=== PATIENT | male | born 1960 | race Caucasian/White ===

== ENCOUNTER 2018-07-20 13:03 | Emergency (ER) | payer OTHER, SELFPAY ==
[2018-07-20] VITALS (11 sets, daily range): BP systolic 118–132; BP diastolic 51–78; PULSE 36–104; RESP 13–20; TEMP 36.2–37.2; O2SAT 96–100
--- NOTE | 2018-07-20 13:42 | ED.SYNCOPE ---
HPI - Syncope General Chief Complaint: Syncope Stated Complaint: NODDING OFF, WAS UNRESPONSIVE FOR A FEW MIN Time Seen by Provider: 07/20/18 13:26 Source: patient Mode of arrival: wheelchair Limitations: no limitations History of Present Illness HPI narrative: Patient is a 58-year-old male who presents with syncopal episodes. He has had 3 syncopal episodes in the last 30 min. They are brief lasting 1-2 minutes. He is in his wheelchair when he nods off. They have been witnessed episodes. 1 was actually in the waiting room. The has been admitted to [facility] multiple times in the past year. He was actually released 06/03/2018 for E coli septicemia and he now resides at [facility]. He does not feel episodes coming on he denies any chest pain heart palpitations or shortness of breath. Related Data Allergies Allergy/AdvReac Type Severity Reaction Status Date / Time furosemide [From Lasix] Allergy Verified 07/20/18 15:10 Review of Systems Review of Systems All systems reviewed & are unremarkable except as noted in HPI and below Constitutional Reports as per HPI, Reports system reviewed and no additional complaints, except as docu, Denies increased appetite and Denies malaise Eyes Denies blurry vision and Denies diplopia ENT Ears, Nose, Mouth, and Throat: Denies change in voice, Denies neck pain and Denies sore throat Cardiovascular Denies chest pain, Reports syncope, Denies irregular heart rhythm, Denies lightheadedness, Denies palpitations, Denies dyspnea, Denies dyspnea on exertion and Denies orthopnea Respiratory Denies cough, Denies dyspnea, Denies dyspnea on exertion and Denies wheezing Gastrointestinal Gastrointestinal: Denies abdominal pain, Denies change in bowel habits, Denies diarrhea, Denies nausea and Denies vomiting Musculoskeletal Denies back pain and Denies neck pain Neurologic Reports syncope Endocrine Denies palpitations Allergic/Immunologic Denies wheezing PFSH Medical History Alcoholism (Acute) Chronic kidney disease (Acute) Diabetes (Acute) Hypertension (Acute) Social History Smoking Status: Never smoker Exam Initial Vital Signs Initial Vital Signs: Vital Signs Temperature 97.7 F 07/20/18 13:30 Pulse Rate 96 H 07/20/18 13:30 Respiratory Rate 20 07/20/18 13:30 Blood Pressure 120/59 L 07/20/18 13:30 Pulse Oximetry 100 07/20/18 13:30 Const General: cooperative, comfortable and well groomed Nutritional Appearance: overweight Orientation: alert, awake and oriented x3 HENMT Head: normal to inspection and normocephalic Eyes General: appearance normal, both eyes and all related structures Neck Neck: normal visual inspection, full ROM and no meningeal signs Chest Chest: normal inspection of the chest Resp Effort & Inspection: normal respiratory effort Auscultation: clear to auscultation bilaterally, no crackles, no egophony, no rales and no rhonchi Cardio Rate: regular rate Rhythm: regular rhythm Heart Sounds: S1 normal and S2 normal GI Palpation: soft Percussion: normal to percussion Back/Spine/Pelvis Back: normal to inspection Skin General: no rashes or lesions noted Neuro General: alert, awake and oriented x3 Cranial Nerves: CN's II-XI intact bilaterally Extrem Other: Right AKA Left toes amputated Course Orders Ordered: ED Orders 07/20/18 13:43 XR chest 1V Stat 07/20/18 13:50 Complete Blood Count AUTO DIFF Stat Comprehensive Metabolic Panel Stat Prothrombin Time INR Stat Troponin & CK Cardiac Panel Stat 07/20/18 13:56 CT head/brain wo con Stat Sodium Chloride (Normal Saline 0.9%) 1,000 mls @ 150 mls/hr IV BOLUS ONE Stop: 07/20/18 20:21 Last Infusion: 07/20/18 15:48 Dose: 500 mls/hr Admin: 07/20/18 15:29 Dose: 150 mls/hr Vital Signs - 8 hr 07/20/18 13:30 07/20/18 14:05 07/20/18 14:30 Temperature 97.7 F Pulse Rate 96 H 99 H 36 L Respiratory Rate 20 16 Blood Pressure 120/59 L Blood Pressure [Right Arm] 118/78 Pulse Oximetry 100 100 07/20/18 14:52 07/20/18 15:02 07/20/18 15:03 Temperature 98.9 F Pulse Rate 104 H 100 H Respiratory Rate Blood Pressure Blood Pressure [Right Arm] 126/51 H 127/54 H Pulse Oximetry 07/20/18 15:05 07/20/18 15:35 07/20/18 16:07 Temperature 97.3 F L 97.2 F L Pulse Rate 102 H 97 H 96 H Respiratory Rate 16 20 Blood Pressure 130/72 H Blood Pressure [Right Arm] 132/57 H 132/70 H Pulse Oximetry 97 97 07/20/18 16:33 07/20/18 17:28 Temperature Pulse Rate 96 H 93 H Respiratory Rate 13 Blood Pressure Blood Pressure [Right Arm] 121/60 H 121/63 H Pulse Oximetry 96 MDM - Syncope Lab Data Attestation: I reviewed the patient's lab results. Result diagrams: 07/20/18 13:50 07/20/18 13:50 Lab Results 07/20/18 07/20/18 07/20/18 Range/Units 13:50 13:50 13:50 WBC 6.9 (4.5-11.0) X10^3/uL RBC 2.85 L (4.5-5.9) X10^6/uL Hgb 9.7 L (13.5-17.5) g/dL Hct 27.3 L (41-53) % MCV 95.8 (80-100) fL MCH 34.1 H (26-34) PG MCHC 35.6 (30-36) % RDW 18.5 H (11.6-14.8) % Plt Count 135 L (150-400) X10^3/uL Neut % (Auto) 77.2 H (50-75) % Lymph % (Auto) 13.6 L (25-40) % [place] % (Auto) 5.4 (3-14) % Eos % (Auto) 3.2 (2-4) % Baso % (Auto) 0.6 (0-2) % Neut # (Auto) 5400 (2706-9322) /uL PT 11.9 (10.1-12.7) SECONDS INR 1.1 (0.9-1.3) Sodium 141 (137-145) mmol/L Potassium 4.3 (3.4-5.1) mmol/L Chloride 105 (98-107) mmol/L Carbon Dioxide 27 (22-32) mmol/L BUN 27 H (9-20) mg/dL Creatinine 1.30 H (0.66-1.25) mg/dL Estimated GFR 56.3 L (>60) mL/min BUN/Creatinine Ratio 20.8 (6-22) Glucose 220 H (80-110) mg/dL Calcium 9.1 (8.4-10.2) mg/dL Total Bilirubin 0.9 (0.2-1.3) mg/dL AST 30 (17-59) IU/L ALT 33 (21-72) IU/L Alkaline Phosphatase 207 H (38-126) U/L Total Creatine Kinase 39 L (55-170) U/L Troponin I < 0.012 (0.01-0.034) ng/mL Total Protein 6.8 (6.3-8.2) g/dL Albumin 3.8 (3.5-5.0) g/dL Globulin 3.0 (1.7-4.1) g/dL Albumin/Globulin Ratio 1.3 (1.0-2.8) ECG Data Attestation: I personally reviewed and interpreted this ECG as follows: MDM Narrative Medical decision making narrative: Patient has had 2 syncopal episodes while in the emergency department. His heart rate appears to an SVT rate 145-150. He then has conversion pauses lasting 3-4 seconds. He passes out during both of these times but is not consistent. His heart rate is very erratically. I have spoken with , cardiology at [facility] regards to syncope. Her she agrees with transferring but recommends hospitalist admission. I spoke with Dr. Freedman, hospitalist who happily accepts patient for transfer. Discharge Plan Departure Patient Disposition: [facility] Clinical Impression: Cardiac syncope Interventions: ED Discharge Assessment Last Done: 07/20/18 16:07
--- NOTE | 2018-07-20 13:43 | DI.RAD.S_ITS ---
PROCEDURE: XR CHEST 1V INDICATIONS: syncope TECHNIQUE: One view of the chest was acquired. COMPARISON: None. FINDINGS: Surgical changes and devices: Sternotomy wires, possible prior CABG. Lungs and pleura: No pleural effusions or pneumothorax. Lungs are mildly edematous. Mediastinum: Mediastinal contours appear normal. Heart size is mildly enlarged. Bones and chest wall: No suspicious bony lesions. Overlying soft tissues appear unremarkable. IMPRESSION: Mild chronic CHF versus mild acute CHF. Prior CABG. Dictated by: Leonardo Ruffin M.D. on 07/20/2018 at 14:05 Approved by: Leonardo Ruffin M.D. on 07/20/2018 at 14:06
--- NOTE | 2018-07-20 13:56 | DI.CT.S_ITS ---
PROCEDURE: CT HEAD/BRAIN WO CON INDICATIONS: syncope TECHNIQUE: Noncontrast 4.5 mm thick angled axial sections acquired from the foramen magnum to the vertex, with coronal and sagittal reformats. For radiation dose reduction, the following was used: automated exposure control, adjustment of mA and/or kV according to patient size. COMPARISON: None. FINDINGS: Image quality: Excellent. CSF spaces: Basal cisterns are patent. No extra-axial fluid collections. Ventricles are normal in size and shape. Brain: No midline shift. No intracranial masses or hemorrhage. Chisholm-white matter interface is normal. Skull and face: Calvarium and visualized facial bones are intact, without suspicious lesions. Sinuses: Visualized sinuses and mastoids are clear. IMPRESSION: Positive syncopal episode is not found, no trauma after syncope is seen. Dictated by: Leonardo Ruffin M.D. on 07/20/2018 at 14:06 Approved by: Leonardo Ruffin M.D. on 07/20/2018 at 14:06
[2018-07-20 14:00] LABS: Add Manual Diff / Slide Review NO; Basophils Percent Auto 0.6 % (0-2); Eosinophils Percent Auto 3.2 % (2-4); Hematocrit 27.3 % (41-53); Hemoglobin 9.7 g/dL (13.5-17.5); Lymphocytes Percent Auto 13.6 % (25-40); Mean Corpuscular HGB Conc 35.6 % (30-36); Mean Corpuscular Hemoglobin 34.1 PG (26-34); Mean Corpuscular Volume 95.8 fL (80-100); Monocytes Percent Auto 5.4 % (3-14); Neutrophils Absolute Auto 5400 /uL (3000-5900); Neutrophils Percent Auto 77.2 % (50-75); Platelet Count 135 X10^3/uL (150-400); Red Blood Cell Count 2.85 X10^6/uL (4.5-5.9); Red Cell Distribution Width 18.5 % (11.6-14.8); White Blood Cell Count 6.9 X10^3/uL (4.5-11.0)
--- NOTE | 2018-07-20 14:06 | PC.NURSE ---
pt transferred into room 5, with friend, apparerently multiple syncopal episodes. while speaking with md, his rhythm went into svt, and pt did feel faint. hr 144. incidence has happened x 3 since admit to ed.
[2018-07-20 14:09] LABS: INR 1.1 (0.9-1.3); Prothrombin Time 11.9 SECONDS (10.1-12.7)
[2018-07-20 14:12] LABS: Alanine Aminotransferase 33 IU/L (21-72); Albumin 3.8 g/dL (3.5-5.0); Albumin Globulin Ratio 1.3 (1.0-2.8); Alkaline Phosphatase 207 U/L (38-126); Aspartate Aminotransferase 30 IU/L (17-59); BUN Creatinine Ratio 20.8 (6-22); Bilirubin Total 0.9 mg/dL (0.2-1.3); Blood Urea Nitrogen 27 mg/dL (9-20); Calcium 9.1 mg/dL (8.4-10.2); Carbon Dioxide 27 mmol/L (22-32); Chloride 105 mmol/L (98-107); Creatine Kinase 39 U/L (55-170); Estimated Glomerular Filt Rate 56.3 mL/min (>60); Glucose 220 mg/dL (80-110); HEMOLYSIS < 15 (0-50); Potassium 4.3 mmol/L (3.4-5.1); Sodium 141 mmol/L (137-145); Total Protein 6.8 g/dL (6.3-8.2)
[2018-07-20 14:29] LABS: Troponin I < 0.012 ng/mL (0.01-0.034)
--- NOTE | 2018-07-20 14:45 | CM.SWNOTE ---
LEATHER GRAINER/Note: Received call from ED staff requesting assistance for patient in room#5. Staff report that patient requesting information for Medical DPOA. LEATHER GRAINER met with patient explained role. Patient is a 58yr old male whom recently moved to [facility] approximately 2wks ago. Patient alert and oriented at time of visit. Patient reports that he was with his friend in local restaurant preparing DPOA paperwork when he had dizzy/fainting episode and came to the Emergency Department. Patient has paperwork with him but it is not completed. LEATHER GRAINER provided patient with DPOA brochure and patient reports that he would prefer to use the paperwork given to him by [facility]. Patient reports that he has no family in the area and that he would like to assign his friend/Musa as his DPOA. Musa arrived during interview and reports that he is in agreement. Paperwork completed and RN/Kassie agreed to call medical records for notary. During this time it was determined that patient will need to be transferred for cardiology services. Patient's preference is to go to [facility] in [place]. ED staff aware of patient's preference. P: Transfer to higher level of care for cardiac services. JORDEN Nolasco
--- NOTE | 2018-07-20 14:51 | ED_ITS ---
HPI - Syncope General Chief Complaint: Syncope Stated Complaint: NODDING OFF, WAS UNRESPONSIVE FOR A FEW MIN Time Seen by Provider: 07/20/18 13:26 Source: patient Mode of arrival: wheelchair Limitations: no limitations History of Present Illness HPI narrative: Patient is a 58-year-old male who presents with syncopal episodes. He has had 3 syncopal episodes in the last 30 min. They are brief lasting 1-2 minutes. He is in his wheelchair when he nods off. They have been witnessed episodes. 1 was actually in the waiting room. The has been admitted to [facility] multiple times in the past year. He was actually released 2017 for E coli septicemia and he now resides at [facility]. He does not feel episodes coming on he denies any chest pain heart palpitations or shortness of breath. Related Data Allergies Allergy/AdvReac Type Severity Reaction Status Date / Time furosemide [From Lasix] Allergy Verified 07/20/18 15:10 Review of Systems Review of Systems All systems reviewed & are unremarkable except as noted in HPI and below Constitutional Reports as per HPI, Reports system reviewed and no additional complaints, except as docu, Denies increased appetite and Denies malaise Eyes Denies blurry vision and Denies diplopia ENT Ears, Nose, Mouth, and Throat: Denies change in voice, Denies neck pain and Denies sore throat Cardiovascular Denies chest pain, Reports syncope, Denies irregular heart rhythm, Denies lightheadedness, Denies palpitations, Denies dyspnea, Denies dyspnea on exertion and Denies orthopnea Respiratory Denies cough, Denies dyspnea, Denies dyspnea on exertion and Denies wheezing Gastrointestinal Gastrointestinal: Denies abdominal pain, Denies change in bowel habits, Denies diarrhea, Denies nausea and Denies vomiting Musculoskeletal Denies back pain and Denies neck pain Neurologic Reports syncope Endocrine Denies palpitations Allergic/Immunologic Denies wheezing PFSH Medical History Alcoholism (Acute) Chronic kidney disease (Acute) Diabetes (Acute) Hypertension (Acute) Social History Smoking Status: Never smoker Exam Initial Vital Signs Initial Vital Signs: Vital Signs Temperature 97.7 F 07/20/18 13:30 Pulse Rate 96 H 07/20/18 13:30 Respiratory Rate 20 07/20/18 13:30 Blood Pressure 120/59 L 07/20/18 13:30 Pulse Oximetry 100 07/20/18 13:30 Const General: cooperative, comfortable and well groomed Nutritional Appearance: overweight Orientation: alert, awake and oriented x3 HENMT Head: normal to inspection and normocephalic Eyes General: appearance normal, both eyes and all related structures Neck Neck: normal visual inspection, full ROM and no meningeal signs Chest Chest: normal inspection of the chest Resp Effort & Inspection: normal respiratory effort Auscultation: clear to auscultation bilaterally, no crackles, no egophony, no rales and no rhonchi Cardio Rate: regular rate Rhythm: regular rhythm Heart Sounds: S1 normal and S2 normal GI Palpation: soft Percussion: normal to percussion Back/Spine/Pelvis Back: normal to inspection Skin General: no rashes or lesions noted Neuro General: alert, awake and oriented x3 Cranial Nerves: CN's II-XI intact bilaterally Extrem Other: Right AKA Left toes amputated Course Orders Ordered: ED Orders 07/20/18 13:43 XR chest 1V Stat 07/20/18 13:50 Complete Blood Count AUTO DIFF Stat Comprehensive Metabolic Panel Stat Prothrombin Time INR Stat Troponin & CK Cardiac Panel Stat 07/20/18 13:56 CT head/brain wo con Stat Sodium Chloride (Normal Saline 0.9%) 1,000 mls @ 150 mls/hr IV BOLUS ONE Stop: 07/20/18 20:21 Last Infusion: 07/20/18 15:48 Dose: 500 mls/hr Admin: 07/20/18 15:29 Dose: 150 mls/hr Vital Signs - 8 hr 07/20/18 13:30 07/20/18 14:05 07/20/18 14:30 Temperature 97.7 F Pulse Rate 96 H 99 H 36 L Respiratory Rate 20 16 Blood Pressure 120/59 L Blood Pressure [Right Arm] 118/78 Pulse Oximetry 100 100 07/20/18 14:52 07/20/18 15:02 07/20/18 15:03 Temperature 98.9 F Pulse Rate 104 H 100 H Respiratory Rate Blood Pressure Blood Pressure [Right Arm] 126/51 H 127/54 H Pulse Oximetry 07/20/18 15:05 07/20/18 15:35 07/20/18 16:07 Temperature 97.3 F L 97.2 F L Pulse Rate 102 H 97 H 96 H Respiratory Rate 16 20 Blood Pressure 130/72 H Blood Pressure [Right Arm] 132/57 H 132/70 H Pulse Oximetry 97 97 07/20/18 16:33 07/20/18 17:28 Temperature Pulse Rate 96 H 93 H Respiratory Rate 13 Blood Pressure Blood Pressure [Right Arm] 121/60 H 121/63 H Pulse Oximetry 96 MDM - Syncope Lab Data Attestation: I reviewed the patient's lab results. Result diagrams: 07/20/18 13:50 07/20/18 13:50 Lab Results 07/20/18 07/20/18 07/20/18 Range/Units 13:50 13:50 13:50 WBC 6.9 (4.5-11.0) X10^3/uL RBC 2.85 L (4.5-5.9) X10^6/uL Hgb 9.7 L (13.5-17.5) g/dL Hct 27.3 L (41-53) % MCV 95.8 (80-100) fL MCH 34.1 H (26-34) PG MCHC 35.6 (30-36) % RDW 18.5 H (11.6-14.8) % Plt Count 135 L (150-400) X10^3/uL Neut % (Auto) 77.2 H (50-75) % Lymph % (Auto) 13.6 L (25-40) % [place] % (Auto) 5.4 (3-14) % Eos % (Auto) 3.2 (2-4) % Baso % (Auto) 0.6 (0-2) % Neut # (Auto) 5400 (7932-2253) /uL PT 11.9 (10.1-12.7) SECONDS INR 1.1 (0.9-1.3) Sodium 141 (137-145) mmol/L Potassium 4.3 (3.4-5.1) mmol/L Chloride 105 (98-107) mmol/L Carbon Dioxide 27 (22-32) mmol/L BUN 27 H (9-20) mg/dL Creatinine 1.30 H (0.66-1.25) mg/dL Estimated GFR 56.3 L (>60) mL/min BUN/Creatinine Ratio 20.8 (6-22) Glucose 220 H (80-110) mg/dL Calcium 9.1 (8.4-10.2) mg/dL Total Bilirubin 0.9 (0.2-1.3) mg/dL AST 30 (17-59) IU/L ALT 33 (21-72) IU/L Alkaline Phosphatase 207 H (38-126) U/L Total Creatine Kinase 39 L (55-170) U/L Troponin I < 0.012 (0.01-0.034) ng/mL Total Protein 6.8 (6.3-8.2) g/dL Albumin 3.8 (3.5-5.0) g/dL Globulin 3.0 (1.7-4.1) g/dL Albumin/Globulin Ratio 1.3 (1.0-2.8) ECG Data Attestation: I personally reviewed and interpreted this ECG as follows: MDM Narrative Medical decision making narrative: Patient has had 2 syncopal episodes while in the emergency department. His heart rate appears to an SVT rate 145-150. He then has conversion pauses lasting 3-4 seconds. He passes out during both of these times but is not consistent. His heart rate is very erratically. I have spoken with , cardiology at [facility] regards to syncope. Her she agrees with transferring but recommends hospitalist admission. I spoke with Dr. Freedman, hospitalist who happily accepts patient for transfer. Discharge Plan Departure Patient Disposition: [facility] Clinical Impression: Cardiac syncope Interventions: ED Discharge Assessment Last Done: 07/20/18 16:07
--- NOTE | 2018-07-20 14:59 | PC.NURSE ---
pt goes into svt 140s and then converts to sr/ st and then goes goes into sinus pause of 3 seconds. feels lightheaded, has not had syncopy here.
--- NOTE | 2018-07-20 15:27 | PC.NURSE ---
friend at bedside pt very verbal during ed stay so far
[2018-07-20] MEDS: SODIUM CHLORIDE 0.9% 1,000 ML 150 ML IV (15:29)
--- NOTE | 2018-07-20 15:51 | PC.NURSE ---
cont to be awake verbal, friend at side. cont monitor. rn monitoring at all times. continues to have svt, but doesnt seem to come as frequently as admit. decreased amt of asystole as well. alert. verbal. friend at side
--- NOTE | 2018-07-20 15:53 | PC.NURSE ---
[facility] accept pt, awaiting shift supervisor to accept
--- NOTE | 2018-07-20 16:12 | PC.NURSE ---
friend took home pt wallet clothing/wheelchair
--- NOTE | 2018-07-20 17:33 | PC.NURSE ---
1315 defib patches placed for bradycardia
--- NOTE | 2018-07-20 18:08 | PC.NURSE ---
friend took wc, paperwork, clothing. pt only has glasses and silver colored ring r pinky finger
--- NOTE | 2018-07-20 18:09 | PC.NURSE ---
report to [facility]
== END 2018-07-20 18:07 | disposition short-term general hospital (02) ==
PROVIDERS: Emergency Provider Emergency Medicine; PCP Internal Medicine
DX: R55 Syncope and collapse (principal)
CPT/HCPCS: 36591; 70450; 71045; 80053; 82550; 82553; 82962; 84484; 85025; 85610; 93005; 93010; 93041; 99285; 99291; 99292

== ENCOUNTER → 2018-08-06 12:37 | Oncology outpatient (ONC) | payer OTHER, MEDICAID, SELFPAY ==
[2018-08-06 13:31] VITALS: BP 124/71; PULSE 75; RESP 16; TEMP 36.8; O2SAT 98
--- NOTE | 2018-08-06 14:04 | P.CONONC_ITS ---
History of Present Illness - Data of Consult Primary Care Provider: Elsie Kasper MD - Consult Narrative Reason for consult: anemia and thrombocytopenia Narrative: Art Kingston is a 58 year old male with extensive medical co-morbidities most notable for diabetes, hypertension, chronic kidney disease, cirrhosis of the liver, hyperlipidemia, and chronic diastolic congestive heart failure. Due to diabetes, patient had right [id number] amputation and left big toe amputation. Patient currently lives at [facility]. He is also a current smoker and has history of COPD. Patient has had multiple hospitalizations. And from July 20 to 2017, patient was hospitalized because of fainting episode. Patient did not feel dizzy prior to the fainting event. While in the hospital, he was noted to have episodes of supraventricular tachycardia followed by bradycardia with pause. Patient was doing well without any recurrence of his syncope episode in the hospital, and was discharged back to [facility] on July 23, 2018. 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 Patient said that he has had long history of anemia. He can't remember since how many years ago. He also has undergone extensive workup for possible gastrointestinal bleeding by Dr. Kramer. Patient said that he underwent upper and lower endoscopy even videoendoscopy. There is no apparent bleeding site identified. He also denies any black stool or bright red blood. On July 21, 2018 WBC 6.6, hemoglobin 8.5, hematocrit 25.6, MCV 98.1, platelets 115. CC: Rodrigo Rocha MD Home Medications and Allergies Home Medications Medication Instructions Recorded Confirmed Type furosemide DAILY 08/06/18 History insulin glargine [Lantus Solostar 08/06/18 08/06/18 History U-100 Insulin] insulin lispro [Humalog KwikPen 08/06/18 08/06/18 History Insulin] insulin lispro [Humalog U-100 08/06/18 08/06/18 History Insulin] lactulose 08/06/18 08/06/18 History magnesium oxide 400 mg PO DAILY 08/06/18 08/06/18 History metoprolol succinate BID 08/06/18 History nitroglycerin 08/06/18 08/06/18 History ondansetron HCl 08/06/18 08/06/18 History oxycodone Q12H PRN 08/06/18 History potassium chloride 08/06/18 08/06/18 History rifaximin [Xifaxan] 08/06/18 08/06/18 History tamsulosin 08/06/18 08/06/18 History tiotropium bromide 1 cap INHALATION DAILY 08/06/18 08/06/18 History Allergies Allergy/AdvReac Type Severity Reaction Status Date / Time furosemide [From Lasix] Allergy Verified 07/20/18 15:10 Medical History - Medical, Surgical, Family History Medical History: Medical History (Last Updated 08/06/18 @ 14:15 by Rodrigo Rocha MD) Chronic anemia (Chronic) Right BKA infection (Acute) COPD (chronic obstructive pulmonary disease) (Acute) History of colon cancer (Acute) Alcoholic cirrhosis (Acute) Alcoholism (Acute) Hypertension (Acute) Chronic kidney disease (Acute) Diabetes (Acute) History of syncope Hypolipidemia Surgical History: Surgical History (Last Updated 08/06/18 @ 14:15 by Rodrigo Rocha MD) Status post colectomy (Acute) H/O mitral valve repair H/O ventral hernia repair History of cardiac catheterization - Social History Smoking Status: Current every day smoker Alcohol Intake: former Review of Systems - Patient Self-Reported Symptoms SR Constitution: Fatigue/Malaise SR ears, nose, mouth, throat issues: Ears ringing SR Cardiovascular issues: Palpitations SR Gastrointestinal issues: Diarrhea SR Musculoskeletal issues: Back or neck pain All systems PM: reviewed and no additional remarkable complaints except as stated Exam Vital signs: Last Vital Signs Temp 98.3 F 08/06/18 13:31 Pulse 75 08/06/18 13:31 Resp 16 08/06/18 13:31 BP 124/71 08/06/18 13:31 Pulse Ox 98 08/06/18 13:31 - Constitutional positive no acute distress, positive obese, positive chronically ill appearing, positive cooperative - Routine HEENT Exam Head: Present: normocephalic, atraumatic Eye: Present: EOMI, PERRL, normal accommodation. Absent: conjunctival icterus ENT: Present: mucous membranes moist - Routine Respiratory Exam Present: Clear to auscultation bilaterally. Absent: rhonchi, stridor - Routine Cardiovascular Exam Present: RRR, S1, S2. Absent: murmur, gallop, rubs - Routine Abdominal Exam Present: soft, normoactive bowel sounds. Absent: tenderness, distended - Routine Extremities Exam Absent: edema - Routine Neurological Exam Present: alert, oriented X3, CN II-XII intact. Absent: sensory deficit, motor deficit - Routine Psychiatric Exam Present: normal affect, normal thought process, cooperative, good insight, good judgment Assessment and Plan (1) Chronic anemia Current visit: Yes Status: Chronic Patient endorses a prolonged history of chronic anemia. Patient even has had extensive workup including upper and lower endoscopy and videoendoscopy. No apparent bleeding sites were identifeid. Patient has extensive medical comorbidities most notable for chronic kidney disease, alcoholism with alcoholic cirrhosis, diabetes and COPD. I discussed with the patient that anemia has a variety of different etiologies. The most common etiology is nutritional deficiency. Given the normocytic anemia, it is unlikely that the anemia is due to iron deficiency. I talked with him that in my opinion, his anemia is because of the concurrent panoply of multiple medical problems especially chronic kidney disease, diabetes, cirrhosis, and COPD. I do not think that he has any primary blood disorder. I described to him the general principal for managing chronic disease associated anemia. I told him that we usually monitor the blood counts regularly. If patient develops symptoms or the hemoglobin/hematocrit below certain threshold generally speaking 06/12, we will proceed with blood transfusion. Otherwise we continue to monitor. If due to other medical comorbidities, the transfusion threshold can be adjusted. Patient has a mildly low platelet counts and I believe that probably is most likely due to the concurrent alcoholic cirrhosis. I talked with the patient that I do not think there is any special hematological tests or biopsies that are needed. I would encourage him to continue to follow up with his primary care provider and other subspecialties. If there are any changes in his situation or any other new developments, I instructed him to call for follow-up.
== END ==
PROVIDERS: PCP Internal Medicine; Visit Provider Internal Medicine Hematology & Oncology
DX: D64.9 Anemia, unspecified (principal); D69.6 Thrombocytopenia, unspecified; F17.200 Nicotine dependence, unspecified, uncomplicated
CPT/HCPCS: 99204; 99214

== ENCOUNTER → 2018-08-17 07:35 | Outpatient (REF) | payer OTHER, MEDICAID, SELFPAY ==
[2018-08-17 08:17] LABS: Add Manual Diff / Slide Review NO; Basophils Percent Auto 0.3 % (0-2); Eosinophils Percent Auto 6.8 % (2-4); Hematocrit 27.8 % (41-53); Hemoglobin 9.7 g/dL (13.5-17.5); Lymphocytes Percent Auto 17.8 % (25-40); Mean Corpuscular HGB Conc 34.7 % (30-36); Mean Corpuscular Hemoglobin 34.5 PG (26-34); Mean Corpuscular Volume 99.4 fL (80-100); Monocytes Percent Auto 6.6 % (3-14); Neutrophils Absolute Auto 6000 /uL (3000-5900); Neutrophils Percent Auto 68.5 % (50-75); Platelet Count 142 X10^3/uL (150-400); Red Cell Distribution Width 16.8 % (11.6-14.8); White Blood Cell Count 8.8 X10^3/uL (4.5-11.0)
[2018-08-17 08:43] LABS: BUN Creatinine Ratio 18.7 (6-22); Blood Urea Nitrogen 28 mg/dL (9-20); Calcium 8.7 mg/dL (8.4-10.2); Carbon Dioxide 24 mmol/L (22-32); Chloride 106 mmol/L (98-107); Estimated Glomerular Filt Rate 47.7 mL/min (>60); Glucose 178 mg/dL (80-110); HEMOLYSIS < 15 (0-50); Potassium 3.8 mmol/L (3.4-5.1); Sodium 144 mmol/L (137-145)
[2018-08-17 22:48] LABS: Add Manual Diff / Slide Review NO; Eosinophils Percent Auto 5.8 % (2-4); Hematocrit 28.1 % (41-53); Hemoglobin 9.9 g/dL (13.5-17.5); Lymphocytes Percent Auto 15.9 % (25-40); Mean Corpuscular HGB Conc 35.2 % (30-36); Mean Corpuscular Hemoglobin 34.5 PG (26-34); Monocytes Percent Auto 5.9 % (3-14); Neutrophils Absolute Auto 5300 /uL (3000-5900); Neutrophils Percent Auto 71.4 % (50-75); Platelet Count 139 X10^3/uL (150-400); Red Blood Cell Count 2.87 X10^6/uL (4.5-5.9); Red Cell Distribution Width 16.5 % (11.6-14.8); White Blood Cell Count 7.4 X10^3/uL (4.5-11.0)
[2018-08-17 23:01] LABS: BUN Creatinine Ratio 20.7 (6-22); Blood Urea Nitrogen 29 mg/dL (9-20); Carbon Dioxide 26 mmol/L (22-32); Chloride 104 mmol/L (98-107); Estimated Glomerular Filt Rate 51.7 mL/min (>60); Glucose 222 mg/dL (80-110); HEMOLYSIS < 15 (0-50); Potassium 4.1 mmol/L (3.4-5.1); Sodium 141 mmol/L (137-145)
[2018-08-18 00:45] LABS: Adenovirus F 40/41 Not Detected (Not Detect); Astrovirus Not Detected (Not Detect); Clostridium difficile toxin AB Not Detected (Not Detect); Cryptosporidium Not Detected (Not Detect); Cyclospora cayetanensis Not Detected (Not Detect); Entamoeba histolytica Not Detected (Not Detect); Enteroaggregative E.coli Not Detected (Not Detect); Enteropathogenic E.coli Not Detected (Not Detect); Enterotoxigenic E.coli It/st Not Detected (Not Detect); Giardia lamblia Not Detected (Not Detect); Norovirus GI/GII Not Detected (Not Detect); Plesiomonsa shigelloides Not Detected (Not Detect); Rotavirus A Not Detected (Not Detect); Salmonella Not Detected (Not Detect); Shiga-like toxin-prod E.coli Not Detected (Not Detect); Shigella/Enteroinvasive E.coli Not Detected (Not Detect); Vibrio Not Detected (Not Detect); Vibrio cholerae Not Detected (Not Detect); Yersinia enterocolitica Not Detected (Not Detect)
[2018-08-18 15:31] LABS: Campylobacter Detected (Not Detect)
== END ==
LOC: LAB 07:35
PROVIDERS: PCP Internal Medicine; Visit Provider Internal Medicine
DX: D64.9 Anemia, unspecified (principal)
CPT/HCPCS: 36415; 80048; 82140; 85025; 87507

== ENCOUNTER → 2018-08-17 22:32 | Outpatient (REF) | payer MEDICARE, MEDICAID, SELFPAY | LOC: LAB 22:32 | PROVIDERS: Visit Provider Internal Medicine | DX: R19.7 Diarrhea, unspecified (principal) ==

== ENCOUNTER 2018-08-19 20:16 | Emergency (ER) | payer OTHER, MEDICAID, SELFPAY ==
--- NOTE | 2018-08-19 20:23 | DI.RAD.S_ITS ---
PROCEDURE: XR CHEST 1V INDICATIONS: ? seizure vs. syncope. TECHNIQUE: One view of the chest was acquired. COMPARISON: [facility], , XR CHEST 1V, 07/20/2018, 13:47. FINDINGS: Surgical changes and devices: Postsurgical changes are redemonstrated in the mediastinum. Lungs and pleura: No pleural effusions or pneumothorax. There are linear opacities medially in the right lung base redemonstrated likely representing atelectasis or scarring. No definite acute consolidation. Mediastinum: Mediastinal contours appear unchanged. Heart size is normal. Bones and chest wall: No suspicious bony lesions. Overlying soft tissues appear unremarkable. IMPRESSION: 1. Probable atelectasis or scarring in the medial right lung base. Dictated by: Stephan Skelton M.D. on 08/19/2018 at 20:45 Approved by: Stephan Skelton M.D. on 08/19/2018 at 20:47
[2018-08-19 20:26] VITALS: BP 135/61; PULSE 71; RESP 18; TEMP 37.2; O2SAT 100; BMI 38.1
[2018-08-19 20:46] LABS: Add Manual Diff / Slide Review NO; Basophils Percent Auto 1.1 % (0-2); Eosinophils Percent Auto 5.4 % (2-4); Hematocrit 30.4 % (41-53); Hemoglobin 10.6 g/dL (13.5-17.5); Lymphocytes Percent Auto 12.5 % (25-40); Mean Corpuscular HGB Conc 34.7 % (30-36); Mean Corpuscular Hemoglobin 34.3 PG (26-34); Neutrophils Absolute Auto 6200 /uL (3000-5900); Platelet Count 141 X10^3/uL (150-400); Red Blood Cell Count 3.07 X10^6/uL (4.5-5.9); Red Cell Distribution Width 17.1 % (11.6-14.8); White Blood Cell Count 8.3 X10^3/uL (4.5-11.0)
[2018-08-19 20:52] LABS: INR 1.1 (0.9-1.3); Prothrombin Time 11.8 SECONDS (10.1-12.7)
[2018-08-19 20:55] LABS: PTT Partial Thromboplastin Tim 29 SECONDS (26.4-36.2)
[2018-08-19 20:57] LABS: Alanine Aminotransferase 35 IU/L (21-72); Albumin 3.8 g/dL (3.5-5.0); Albumin Globulin Ratio 1.2 (1.0-2.8); Alkaline Phosphatase 192 U/L (38-126); Aspartate Aminotransferase 37 IU/L (17-59); Bilirubin Total 0.6 mg/dL (0.2-1.3); Blood Urea Nitrogen 32 mg/dL (9-20); Carbon Dioxide 26 mmol/L (22-32); Chloride 103 mmol/L (98-107); Creatine Kinase 25 U/L (55-170); Estimated Glomerular Filt Rate 44.3 mL/min (>60); Globulin 3.1 g/dL (1.7-4.1); Glucose 282 mg/dL (80-110); HEMOLYSIS < 15 (0-50); Potassium 4.4 mmol/L (3.4-5.1); Sodium 140 mmol/L (137-145); Total Protein 6.9 g/dL (6.3-8.2)
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
[2018-08-19 21:10] LABS: Troponin I < 0.012 ng/mL (0.01-0.034)
[2018-08-19 21:15] VITALS: BP 121/52; PULSE 70; RESP 15; O2SAT 97
[2018-08-19] MEDS: SODIUM CHLORIDE 0.9% 1,000 ML 1000 ML IV (22:08)
--- NOTE | 2018-08-19 23:09 | PC.NURSE ---
Patient has a cafeteria monitor in place upon arrival. States he felt lightheaded and like his head was just not right while laying down after eating dinner. States the facility he lives at got a phone call from the holter monitor company stating he had a pause of 20 seconds in his heart rhythm. States he had chest pressure at the time of the event. Denies CP, SOB, N/V, at this time.
[2018-08-19 23:15] VITALS: BP 127/54; PULSE 71; RESP 19; O2SAT 100
[2018-08-19] MEDS: INSULIN GLARGINE 100 UNIT/ML 3ML PEN 30 UNIT SUBCUT (23:19)
[2018-08-20 04:00] VITALS: BP 117/62; PULSE 63; RESP 13; O2SAT 97
[2018-08-20 07:00] VITALS: BP 109/58; PULSE 64; RESP 14; O2SAT 99
[2018-08-20 08:10] VITALS: PULSE 71; RESP 15; O2SAT 98
[2018-08-20 09:05] VITALS: BP 119/58; PULSE 71; RESP 12; O2SAT 96
[2018-08-20 11:05] VITALS: BP 129/61; PULSE 75
[2018-08-20 12:54] VITALS: BP 120/56; PULSE 67; RESP 13; O2SAT 95
== END 2018-08-20 13:23 | disposition short-term general hospital (02) ==
PROVIDERS: Emergency Medicine; Emergency Provider Emergency Medicine; Family Provider Internal Medicine; PCP Internal Medicine
DX: R55 Syncope and collapse (principal)
CPT/HCPCS: 36591; 71045; 80053; 82550; 84484; 85025; 85610; 85730; 93005; 96360; 96361; 99285

== ENCOUNTER 2018-08-23 14:33 | Emergency (ER) | payer OTHER, MEDICAID, SELFPAY ==
--- NOTE | 2018-08-23 14:44 | DI.RAD.S_ITS ---
PROCEDURE: XR CHEST 1V INDICATIONS: chest pain pace maker TECHNIQUE: One view of the chest was acquired. COMPARISON: [facility], , XR CHEST 1V, 08/19/2018, 20:30. FINDINGS: Surgical changes and devices: There is a new left chest wall dual-lead pacemaker with leads projecting over the right atrium and right ventricle. Postsurgical changes are redemonstrated in the mediastinum. Lungs and pleura: No pleural effusions or definite pneumothorax. Lungs are clear. Mediastinum: Mediastinal contours appear unchanged. Heart size is borderline enlarged. Bones and chest wall: No suspicious bony lesions. Overlying soft tissues appear unremarkable. IMPRESSION: 1. No definite pneumothorax. Dictated by: Stephan Skelton M.D. on 08/23/2018 at 14:56 Approved by: Stephan Skelton M.D. on 08/23/2018 at 14:57
--- NOTE | 2018-08-23 14:51 | ED.CHESTPAIN ---
HPI - Chest Pain General Chief Complaint: Dizziness Stated Complaint: Dizziness, pacemaker placed 4 days ago Time Seen by Provider: 08/23/18 14:39 Source: patient and EMS Mode of arrival: EMS Limitations: no limitations History of Present Illness HPI narrative: The patient is a 58-year-old male who had a pacemaker placed 4 days ago for multiple frequent syncopal episodes. He states today he was having a bowel movement, stood up and his heart rate sped up to 130 he was slightly dizzy he did not pass out he feels better. He does not have chest pain or shortness of breath. MD complaint: chest pain Related Data Home Medications Medication Instructions Recorded Confirmed insulin lispro [Humalog KwikPen 1 dose SUBCUT DIRECTED 08/06/18 08/23/18 Insulin] magnesium oxide 400 mg PO DAILY 08/06/18 08/23/18 nitroglycerin 1 tab SUBLINGUAL PRN PRN 08/06/18 08/23/18 ondansetron HCl 1 tab PO Q6H PRN 08/06/18 08/23/18 oxycodone 5 mg PO Q8H PRN 08/06/18 08/23/18 potassium chloride 10 meq PO BID 08/06/18 08/23/18 tiotropium bromide 1 cap INHALATION DAILY 08/06/18 08/23/18 Scotch 1 dose PO BEDTIME PRN 08/20/18 08/23/18 albuterol sulfate [ProAir HFA] 2 puff INHALATION Q4H PRN 08/20/18 08/23/18 aspirin 1 tab PO DAILY 08/20/18 08/23/18 atorvastatin 10 mg PO BEDTIME 08/20/18 08/23/18 bisacodyl 1 supp NH PRN PRN 08/20/18 08/23/18 calcium carbonate [Tums] 2 tab PO Q4H PRN 08/20/18 08/23/18 dextran 70-hypromellose [Natural 1 drp OPHTHALMIC (EYE) PRN PRN 08/20/18 08/23/18 Balance Tears] diclofenac sodium 1 applic TOPICAL QID PRN 08/20/18 08/23/18 ferrous sulfate 1 tab PO DAILY 08/20/18 08/23/18 folic acid 1 mg PO DAILY 08/20/18 08/23/18 furosemide 80 mg PO DAILY 08/20/18 08/23/18 magnesium hydroxide [Milk of 30 ml PO PRN PRN 08/20/18 08/23/18 Magnesia] simethicone 80 mg PO Q6H PRN 08/20/18 08/23/18 lactulose 20 ml PO BID 08/23/18 08/23/18 rifaximin 550 mg PO BID 08/23/18 08/23/18 tamsulosin 2 cap PO QPM 08/23/18 08/23/18 Allergies Allergy/AdvReac Type Severity Reaction Status Date / Time furosemide [From Lasix] Allergy Verified 08/18/18 11:30 Review of Systems Review of Systems All systems reviewed & are unremarkable except as noted in HPI and below Constitutional Denies chills, Denies fever(s), Denies lethargy and Denies weakness ENT Ears, Nose, Mouth, and Throat: Denies change in voice, Denies dizziness, Denies neck pain and Denies sore throat Cardiovascular Reports as per HPI, Denies syncope, Denies dyspnea and Denies dyspnea on exertion Respiratory Denies cough, Denies dyspnea, Denies dyspnea on exertion and Denies wheezing Gastrointestinal Gastrointestinal: Denies abdominal pain, Denies change in bowel habits, Denies diarrhea, Denies nausea and Denies vomiting Musculoskeletal Denies neck pain Integumentary/Breasts Denies pruritus, Denies erythema, Denies rash and Denies wounds Neurologic Denies dizziness, Denies syncope and Denies weakness Allergic/Immunologic Denies wheezing [facility] Medical History Chronic anemia (Chronic) Right BKA infection (Acute) COPD (chronic obstructive pulmonary disease) (Acute) History of colon cancer (Acute) Alcoholic cirrhosis (Acute) Alcoholism (Acute) Hypertension (Acute) Chronic kidney disease (Acute) Diabetes (Acute) History of syncope (Acute) Hypolipidemia (Acute) Surgical History Status post colectomy (Acute) Status post placement of cardiac pacemaker (Acute) H/O mitral valve repair (Acute) H/O ventral hernia repair (Acute) History of cardiac catheterization (Acute) Social History Smoking Status: Current every day smoker alcohol intake: former Exam Initial Vital Signs Initial Vital Signs: Vital Signs Temperature 98.4 F 08/23/18 15:10 Pulse Rate 78 08/23/18 15:10 Respiratory Rate 14 08/23/18 15:10 Blood Pressure 131/57 L 08/23/18 15:10 Pulse Oximetry 99 08/23/18 15:10 GENERAL: Well-appearing, well-nourished and in no acute distress. HEENT: Head atraumatic,EOMI, pupils reactive, face symmetric, CARDIOVASCULAR: Regular rate and rhythm without murmurs, rubs or gallops. RESPIRATORY: Breath sounds equal bilaterally, no wheezes rales or rhonchi. ABDOMEN: Soft, nontender. Normoactive bowel sounds all 4 quadrants. No guarding or rebound. EXTREMITIES: Right BKA NEUROLOGICAL: Alert and oriented x4. Cranial nerves intact SKIN: Incision site left chest at pacemaker clean and dry dressing is still in place. Course Orders Ordered: ED Orders 08/23/18 14:44 XR chest 1V Stat EKG-12 Lead Stat 08/23/18 15:15 Complete Blood Count AUTO DIFF Stat Comprehensive Metabolic Panel Stat Troponin & CK Cardiac Panel Stat Vital Signs - 8 hr 08/23/18 15:10 08/23/18 15:41 08/23/18 16:00 Temperature 98.4 F Pulse Rate 78 78 73 Respiratory Rate 14 14 12 Blood Pressure 131/57 L Blood Pressure [Left Arm] 127/58 L 125/49 L Pulse Oximetry 99 96 97 08/23/18 16:42 08/23/18 17:00 Temperature Pulse Rate 75 72 Respiratory Rate 10 L 12 Blood Pressure Blood Pressure [Left Arm] 123/54 L 129/58 L Pulse Oximetry 97 98 MDM - Chest Pain Lab Data Attestation: I reviewed the patient's lab results. Result diagrams: 08/23/18 15:15 08/23/18 15:15 Lab Results 08/23/18 08/23/18 Range/Units 15:15 15:15 WBC 6.7 (4.5-11.0) X10^3/uL RBC 2.80 L (4.5-5.9) X10^6/uL Hgb 9.7 L (13.5-17.5) g/dL Hct 27.5 L (41-53) % MCV 98.2 (80-100) fL MCH 34.8 H (26-34) PG MCHC 35.5 (30-36) % RDW 16.1 H (11.6-14.8) % Plt Count 125 L (150-400) X10^3/uL Neut % (Auto) 72.2 (50-75) % Lymph % (Auto) 14.7 L (25-40) % Drew % (Auto) 7.9 (3-14) % Eos % (Auto) 4.0 (2-4) % Baso % (Auto) 1.2 (0-2) % Neut # (Auto) 4900 (1763-6924) /uL Sodium 138 (137-145) mmol/L Potassium 4.8 (3.4-5.1) mmol/L Chloride 101 (98-107) mmol/L Carbon Dioxide 27 (22-32) mmol/L BUN 39 H (9-20) mg/dL Creatinine 1.50 H (0.66-1.25) mg/dL Estimated GFR 47.7 L (>60) mL/min BUN/Creatinine Ratio 26.0 H (6-22) Glucose 219 H (80-110) mg/dL Calcium 8.9 (8.4-10.2) mg/dL Total Bilirubin 1.1 (0.2-1.3) mg/dL AST 30 (17-59) IU/L ALT 35 (21-72) IU/L Alkaline Phosphatase 208 H (38-126) U/L Total Creatine Kinase 69 (55-170) U/L CK-MB (CK-2) TNP CK-MB (CK-2) Rel Index TNP Troponin I < 0.012 (0.01-0.034) ng/mL Total Protein 6.7 (6.3-8.2) g/dL Albumin 3.7 (3.5-5.0) g/dL Globulin 3.0 (1.7-4.1) g/dL Albumin/Globulin Ratio 1.2 (1.0-2.8) Imaging Data Chest x-ray: Radiologist's impression: PROCEDURE: XR CHEST 1V INDICATIONS: chest pain pace maker TECHNIQUE: One view of the chest was acquired. COMPARISON: [facility], , XR CHEST 1V, 08/19/2018, 20:30. FINDINGS: Surgical changes and devices: There is a new left chest wall dual-lead pacemaker with leads projecting over the right atrium and right ventricle. Postsurgical changes are redemonstrated in the mediastinum. Lungs and pleura: No pleural effusions or definite pneumothorax. Lungs are clear. Mediastinum: Mediastinal contours appear unchanged. Heart size is borderline enlarged. Bones and chest wall: No suspicious bony lesions. Overlying soft tissues appear unremarkable. IMPRESSION: 1. No definite pneumothorax. Dictated by: Stephan Skelton M.D. on 08/23/2018 at 14:56 ECG Data Attestation: I personally reviewed and interpreted this ECG as follows: Prior ECG tracings: available for review Interpretation: Sinus rhythm rate 83 ST depression noted in lead 3 similar to previous EKG 07/20/2018. His NH interval 192, QRS 101, QTC 420 MDM Narrative Medical decision making narrative: Patient is pacemaker was interrogated by the [employer]. No abnormality was found. Patient has been asymptomatic here. Blood work within normal limits. Will be discharged back to [facility]. Discharge Plan Departure Patient Disposition: Assisted Living Clinical Impression: Atypical chest pain, Pacemaker Instructions: DI for Atypical Chest Pain Activity Restrictions/Additional Instructions: *You have been diagnosed with atypical chest pain *What to do: Pacemaker checked out today all blood work and chest x-ray within normal limits *Continue to take medications as directed *Follow up with your primary care provider in 2-3 days *Return to ER if you should have increasing chest pain palpitations dizziness passing or any new, worsening or concerning symptoms Prescriptions: No Action atorvastatin 10 mg tablet 10 mg PO BEDTIME RF: 0 albuterol sulfate [ProAir HFA] 90 mcg/actuation HFA aerosol inhaler 2 puff Inhalation Q4H PRN (Reason: Wheezing) RF: 0 diclofenac sodium 1 % gel 1 applic Topical QID PRN (Reason: Back Pain) RF: 0 furosemide 40 mg tablet 80 mg PO DAILY RF: 0 aspirin 81 mg Tablet,Delayed Release (Dr/Ec) 1 tab PO DAILY RF: 0 magnesium hydroxide [Milk of Magnesia] 400 mg/5 mL Suspension 30 ml PO PRN PRN (Reason: Constipation) RF: 0 bisacodyl 10 mg Suppository 1 supp NH PRN PRN (Reason: Constipation) RF: 0 ferrous sulfate 325 mg (65 mg iron) Tablet 1 tab PO DAILY RF: 0 calcium carbonate [Tums] 200 mg calcium (500 mg) Tablet,Chewable 2 tab PO Q4H PRN (Reason: Indigestion) RF: 0 folic acid 1 mg Tablet 1 mg PO DAILY RF: 0 simethicone 80 mg Tablet 80 mg PO Q6H PRN (Reason: excessive gas) RF: 0 dextran 70-hypromellose [Natural Balance Tears] 0.1-0.3 % Drops 1 drp ophthalmic (eye) PRN PRN (Reason: Dry Eyes) RF: 0 Scotch 1 dose PO BEDTIME PRN (Reason: unknown) RF: 0 tamsulosin 0.4 mg capsule 2 cap PO QPM RF: 0 lactulose 10 gram/15 mL solution 20 ml PO BID RF: 0 rifaximin 550 mg Tablet 550 mg PO BID RF: 0 ondansetron HCl 4 mg tablet 1 tab PO Q6H PRN (Reason: Nausea) RF: 0 potassium chloride 10 mEq tablet extended release 10 meq PO BID RF: 0 magnesium oxide 400 mg Tablet 400 mg PO DAILY RF: 0 nitroglycerin 0.4 mg tablet, sublingual 1 tab Sublingual PRN PRN (Reason: Chest Pain) RF: 0 oxycodone 5 mg tablet 5 mg PO Q8H PRN (Reason: Pain, Severe) RF: 0 insulin lispro [Humalog KwikPen Insulin] 100 unit/mL insulin pen 1 dose subcut DIRECTED RF: 0 tiotropium bromide 18 mcg Capsule, W/Inhalation Device 1 cap INHALATION DAILY RF: 0 Referrals: Elsie Kasper MD [Primary Care Provider] -
[2018-08-23 15:10] VITALS: BP 131/57; PULSE 78; RESP 14; TEMP 36.9; O2SAT 99
[2018-08-23 15:30] LABS: Add Manual Diff / Slide Review NO; Basophils Percent Auto 1.2 % (0-2); Hematocrit 27.5 % (41-53); Hemoglobin 9.7 g/dL (13.5-17.5); Lymphocytes Percent Auto 14.7 % (25-40); Mean Corpuscular HGB Conc 35.5 % (30-36); Mean Corpuscular Hemoglobin 34.8 PG (26-34); Mean Corpuscular Volume 98.2 fL (80-100); Monocytes Percent Auto 7.9 % (3-14); Neutrophils Absolute Auto 4900 /uL (3000-5900); Neutrophils Percent Auto 72.2 % (50-75); Platelet Count 125 X10^3/uL (150-400); Red Cell Distribution Width 16.1 % (11.6-14.8); White Blood Cell Count 6.7 X10^3/uL (4.5-11.0)
[2018-08-23 15:36] LABS: Alanine Aminotransferase 35 IU/L (21-72); Albumin 3.7 g/dL (3.5-5.0); Albumin Globulin Ratio 1.2 (1.0-2.8); Alkaline Phosphatase 208 U/L (38-126); Aspartate Aminotransferase 30 IU/L (17-59); Bilirubin Total 1.1 mg/dL (0.2-1.3); Blood Urea Nitrogen 39 mg/dL (9-20); Calcium 8.9 mg/dL (8.4-10.2); Carbon Dioxide 27 mmol/L (22-32); Chloride 101 mmol/L (98-107); Creatine Kinase 69 U/L (55-170); Estimated Glomerular Filt Rate 47.7 mL/min (>60); Glucose 219 mg/dL (80-110); HEMOLYSIS < 15 (0-50); Potassium 4.8 mmol/L (3.4-5.1); Sodium 138 mmol/L (137-145); Total Protein 6.7 g/dL (6.3-8.2)
[2018-08-23 15:41] VITALS: BP 127/58; PULSE 78; RESP 14; O2SAT 96
[2018-08-23 15:48] LABS: Troponin I < 0.012 ng/mL (0.01-0.034)
[2018-08-23 16:00] VITALS: BP 125/49; PULSE 73; RESP 12; O2SAT 97
[2018-08-23 16:42] VITALS: BP 123/54; PULSE 75; RESP 10; O2SAT 97
[2018-08-23 17:00] VITALS: BP 129/58; PULSE 72; RESP 12; O2SAT 98
== END 2018-08-23 17:36 ==
PROVIDERS: Emergency Provider Emergency Medicine; Family Provider Internal Medicine; PCP Internal Medicine
DX: R07.89 Other chest pain (principal); Z95.0 Presence of cardiac pacemaker
CPT/HCPCS: 36415; 36591; 71045; 80053; 82550; 84484; 85025; 93005; 99283; 99285

== ENCOUNTER → 2018-08-26 07:33 | Outpatient (REF) | payer OTHER, MEDICAID, SELFPAY ==
[2018-08-26 08:08] LABS: Add Manual Diff / Slide Review NO; Eosinophils Percent Auto 7.4 % (2-4); Hematocrit 27.3 % (41-53); Hemoglobin 9.8 g/dL (13.5-17.5); Lymphocytes Percent Auto 17.3 % (25-40); Mean Corpuscular Volume 97.1 fL (80-100); Monocytes Percent Auto 7.6 % (3-14); Neutrophils Absolute Auto 5500 /uL (3000-5900); Neutrophils Percent Auto 66.7 % (50-75); Platelet Count 182 X10^3/uL (150-400); Red Blood Cell Count 2.81 X10^6/uL (4.5-5.9); White Blood Cell Count 8.3 X10^3/uL (4.5-11.0)
[2018-08-26 08:35] LABS: Alanine Aminotransferase 37 IU/L (21-72); Albumin 3.8 g/dL (3.5-5.0); Albumin Globulin Ratio 1.2 (1.0-2.8); Alkaline Phosphatase 241 U/L (38-126); Aspartate Aminotransferase 26 IU/L (17-59); BUN Creatinine Ratio 21.4 (6-22); Blood Urea Nitrogen 30 mg/dL (9-20); Calcium 9.2 mg/dL (8.4-10.2); Carbon Dioxide 29 mmol/L (22-32); Chloride 102 mmol/L (98-107); Estimated Glomerular Filt Rate 51.7 mL/min (>60); Globulin 3.2 g/dL (1.7-4.1); Glucose 165 mg/dL (80-110); HEMOLYSIS < 15 (0-50); Potassium 4.1 mmol/L (3.4-5.1); Sodium 142 mmol/L (137-145)
== END ==
LOC: LAB 07:33
PROVIDERS: Family Provider Internal Medicine; PCP Internal Medicine; Visit Provider Internal Medicine
DX: F10.10 Alcohol abuse, uncomplicated (principal); I10 Essential (primary) hypertension; N17.9 Acute kidney failure, unspecified; K72.90 Hepatic failure, unspecified without coma
CPT/HCPCS: 36415; 80053; 82140; 85025

== ENCOUNTER → 2018-09-09 07:12 | Outpatient (REF) | payer OTHER, MEDICAID, SELFPAY ==
[2018-09-09 08:12] LABS: Add Manual Diff / Slide Review NO; Basophils Percent Auto 0.6 % (0-2); Eosinophils Percent Auto 6.7 % (2-4); Hemoglobin 9.5 g/dL (13.5-17.5); Lymphocytes Percent Auto 18.2 % (25-40); Mean Corpuscular HGB Conc 35.1 % (30-36); Mean Corpuscular Hemoglobin 34.6 PG (26-34); Mean Corpuscular Volume 98.7 fL (80-100); Neutrophils Absolute Auto 4200 /uL (3000-5900); Neutrophils Percent Auto 66.5 % (50-75); Platelet Count 139 X10^3/uL (150-400); Red Blood Cell Count 2.73 X10^6/uL (4.5-5.9); Red Cell Distribution Width 15.5 % (11.6-14.8); White Blood Cell Count 6.3 X10^3/uL (4.5-11.0)
[2018-09-09 08:35] LABS: Alanine Aminotransferase 39 IU/L (21-72); Albumin 3.4 g/dL (3.5-5.0); Albumin Globulin Ratio 1.1 (1.0-2.8); Alkaline Phosphatase 201 U/L (38-126); Aspartate Aminotransferase 32 IU/L (17-59); BUN Creatinine Ratio 21.5 (6-22); Bilirubin Total 0.6 mg/dL (0.2-1.3); Blood Urea Nitrogen 28 mg/dL (9-20); Calcium 8.7 mg/dL (8.4-10.2); Carbon Dioxide 23 mmol/L (22-32); Chloride 105 mmol/L (98-107); Estimated Glomerular Filt Rate 56.3 mL/min (>60); Glucose 191 mg/dL (80-110); HEMOLYSIS < 15 (0-50); Potassium 4.1 mmol/L (3.4-5.1); Sodium 142 mmol/L (137-145); Total Protein 6.4 g/dL (6.3-8.2)
== END ==
LOC: LAB 07:12
PROVIDERS: Family Provider Internal Medicine; PCP Internal Medicine; Visit Provider Nurse Practitioner Family
DX: K70.30 Alcoholic cirrhosis of liver without ascites (principal); G93.40 Encephalopathy, unspecified; D64.9 Anemia, unspecified
CPT/HCPCS: 36415; 80053; 82140; 85025

== ENCOUNTER 2018-09-14 21:04 | Emergency (ER) | payer OTHER, MEDICAID, SELFPAY ==
[2018-09-14 21:08] VITALS: BP 126/55; PULSE 70; RESP 13; TEMP 36.4; O2SAT 100; BMI 37.5
[2018-09-14 21:20] VITALS: BP 116/64; PULSE 65; RESP 12; O2SAT 100
--- NOTE | 2018-09-14 21:36 | DI.CT.S_ITS ---
PROCEDURE: CT ANGIO CHEST PE PROTOCOL INDICATIONS: pleuritic chest pain, high risk for PE, recent pacer also TECHNIQUE: After the administration of intravenous contrast, 2 mm thick sections acquired from the pulmonary apices to the posterior costophrenic angles. 3-dimensional maximum intensity projection (MIP) coronal and sagittal reformats were then acquired through the thorax. For radiation dose reduction, the following was used: automated exposure control, adjustment of mA and/or kV according to patient size. COMPARISON: None. FINDINGS: Image quality: Excellent. Pulmonary arteries: Pulmonary arteries are normal in size, and demonstrate no intraluminal filling defects to suggest central pulmonary embolism. Lungs and pleura: Lungs are clear. No pleural effusions or pneumothorax. Central and peripheral airways are patent. Mediastinum: Heart size is normal, without pericardial effusion. No mediastinal or hilar adenopathy. Thoracic aorta is normal in caliber and enhancement. Esophagus is normal in caliber, without hiatal hernia. Bones and chest wall: No suspicious bony lesions. Ribs and thoracic spine appear intact throughout. Thyroid gland appears normal where well visualized. No axillary or supraclavicular adenopathy. Cardiac pacemaking device and dual chamber leads noted. Abdomen: Visualized upper abdominal solid organs appear normal in the early arterial phase of enhancement except at the liver where the morphology of the liver and also the capsular border indicates likelihood of significant cirrhosis at this time. No hepatic mass or varices/ascites are found. Gallstones within the gallbladder lumen are densely calcified and layer dependently.. IMPRESSION: No pulmonary embolus seen. Hepatic cirrhosis is presumed based on the hepatic morphology and capsular nodular margination. Gallstones within the gallbladder lumen are densely calcified and yet there is no current evidence for acute cholecystitis or biliary distention. Dictated by: Leonardo Ruffin M.D. on 09/15/2018 at 8:53 Approved by: Leonardo Ruffin M.D. on 09/15/2018 at 9:01
--- NOTE | 2018-09-14 21:36 | ED.CHESTPAIN ---
HPI - Chest Pain General Chief Complaint: Chest Pain Stated Complaint: Chest pain Time Seen by Provider: 09/14/18 21:14 Source: patient and EMS Mode of arrival: EMS Limitations: no limitations History of Present Illness HPI narrative: 58-year-old daily smoker with complex medical history presents with a chief complaint of sharp and stabbing anterior chest pain with any motion, palpation or deep breath for the past day or 2. He denies other symptoms such as dizziness, weakness or lightheadedness. He denies shortness of breath nor fever or chills. He denies nausea, vomiting or diarrhea. He feels completely fine when remaining still. Three months ago the patient had a myocardial infarction and was evaluated at [facility]. Three weeks ago the patient had a pacemaker placed and has had no troubles with the pacer. He denies any recent long distance travel or injury but at significant risk for PE including sedentary lifestyle, recent hospitalizations and surgical procedures. MD complaint: chest pain Onset (ago): hour(s) Duration: intermittent Pain location: substernal Severity: mild Quality: sharp Pain radiation: none Relieving factors: remaining still Exacerbating factors: inspiration and movement Context: recent illness, recent surgery and recent immobilization Associated symptoms: nausea Treatments prior to arrival chest pain: none Related Data Home Medications Medication Instructions Recorded Confirmed insulin lispro [Humalog KwikPen 1 dose SUBCUT DIRECTED 08/06/18 08/23/18 Insulin] magnesium oxide 400 mg PO DAILY 08/06/18 08/23/18 nitroglycerin 1 tab SUBLINGUAL PRN PRN 08/06/18 08/23/18 ondansetron HCl 1 tab PO Q6H PRN 08/06/18 08/23/18 oxycodone 5 mg PO Q8H PRN 08/06/18 08/23/18 potassium chloride 10 meq PO BID 08/06/18 08/23/18 tiotropium bromide 1 cap INHALATION DAILY 08/06/18 08/23/18 Scotch 1 dose PO BEDTIME PRN 08/20/18 08/23/18 albuterol sulfate [ProAir HFA] 2 puff INHALATION Q4H PRN 08/20/18 08/23/18 aspirin 1 tab PO DAILY 08/20/18 08/23/18 atorvastatin 10 mg PO BEDTIME 08/20/18 08/23/18 bisacodyl 1 supp IN PRN PRN 08/20/18 08/23/18 calcium carbonate [Tums] 2 tab PO Q4H PRN 08/20/18 08/23/18 dextran 70-hypromellose [Natural 1 drp OPHTHALMIC (EYE) PRN PRN 08/20/18 08/23/18 Balance Tears] diclofenac sodium 1 applic TOPICAL QID PRN 08/20/18 08/23/18 ferrous sulfate 1 tab PO DAILY 08/20/18 08/23/18 folic acid 1 mg PO DAILY 08/20/18 08/23/18 furosemide 80 mg PO DAILY 08/20/18 08/23/18 magnesium hydroxide [Milk of 30 ml PO PRN PRN 08/20/18 08/23/18 Magnesia] simethicone 80 mg PO Q6H PRN 08/20/18 08/23/18 lactulose 20 ml PO BID 08/23/18 08/23/18 rifaximin 550 mg PO BID 08/23/18 08/23/18 tamsulosin 2 cap PO QPM 08/23/18 08/23/18 Allergies Allergy/AdvReac Type Severity Reaction Status Date / Time furosemide [From Lasix] Allergy Verified 08/18/18 11:30 Review of Systems Review of Systems All systems reviewed & are unremarkable except as noted in HPI and below Constitutional Denies chills, Denies fever(s), Denies lethargy and Denies weakness Eyes Denies change in vision, Denies eye discharge, Denies irritation and Denies loss of vision ENT Ears, Nose, Mouth, and Throat: Denies change in voice, Denies neck pain and Denies sore throat Cardiovascular Denies chest pain, Denies irregular heart rhythm, Denies lightheadedness, Denies palpitations, Denies dyspnea, Denies dyspnea on exertion and Denies orthopnea Respiratory Denies cough, Denies dyspnea, Denies dyspnea on exertion and Denies wheezing Gastrointestinal Gastrointestinal: Denies abdominal pain, Denies change in bowel habits, Denies diarrhea, Denies nausea and Denies vomiting Genitourinary Denies hematuria, Denies flank pain, Denies urinary incontinence and Denies urinary urgency Musculoskeletal Denies neck pain Integumentary/Breasts Denies pruritus, Denies erythema, Denies rash and Denies wounds Neurologic Denies confusion, Denies loss of vision and Denies weakness Psychiatric Denies anxiety, Denies confusion, Denies depression, Denies homicidal ideation and Denies suicidal ideation Endocrine Denies palpitations Hematologic/Lymphatic Denies easy bruising Allergic/Immunologic Denies wheezing [facility] Medical History Chronic anemia (Chronic) Right BKA infection (Acute) COPD (chronic obstructive pulmonary disease) (Acute) History of colon cancer (Acute) Alcoholic cirrhosis (Acute) Alcoholism (Acute) Hypertension (Acute) Chronic kidney disease (Acute) Diabetes (Acute) History of syncope (Acute) Hypolipidemia (Acute) Surgical History Status post colectomy (Acute) H/O mitral valve repair (Acute) H/O ventral hernia repair (Acute) History of cardiac catheterization (Acute) Status post placement of cardiac pacemaker (Acute) Social History Smoking Status: Current every day smoker alcohol intake: former Exam Narrative Exam Narrative: 58-year-old male, resting comfortably, obvious pain with motion Initial Vital Signs Initial Vital Signs: Vital Signs Temperature 97.5 F L 09/14/18 21:08 Pulse Rate 70 09/14/18 21:08 Respiratory Rate 13 09/14/18 21:08 Blood Pressure 126/55 L 09/14/18 21:08 Pulse Oximetry 100 09/14/18 21:08 Const General: cooperative and well developed Nutritional Appearance: overweight Orientation: alert, awake, oriented x3 and not confused [facility] Head: normocephalic and atraumatic Ears: external ears normal and TM's normal bilaterally Nose: external nose normal and No nasal discharge Face and sinus: sinuses nontender, face symmetric, no sinus tenderness and No dry mucous membranes Mouth: oral mucosae normal and moist mucous membranes Teeth and gingiva: dentition normal Throat: tonsils normal and uvula midline Eyes General: appearance normal, both eyes and all related structures Eyelids: eyelids normal Conjunctivae: conjunctivae normal Sclera: sclerae normal Pupils: PERRL EOM: EOM intact bilaterally Chest Chest: normal inspection of the chest and abnormal inspection of the chest Resp Effort & Inspection: normal respiratory effort, able to speak in complete sentences, no respiratory distress and no use of accessory muscles Auscultation: clear to auscultation bilaterally, no rales, no rhonchi and no wheezes GI Inspection: non-distended Palpation: soft, no hepatosplenomegaly, No guarding, No pulsatile mass and No tender Auscultation: normal bowel sounds Back/Spine/Pelvis Back: No CVA tenderness Cervical Spine: cervical ROM normal and No pain with cervical ROM Thoracic/Lumbar Spine: thoracic and lumbar spine normal to inspection Skin General: no rashes or lesions noted, No jaundice and No petechiae Extrem General: full ROM, no clubbing, cyanosis or edema, no pedal edema and no calf tenderness Course Orders Ordered: ED Orders 09/14/18 21:20 EKG-12 Lead Stat 09/14/18 21:30 Complete Blood Count AUTO DIFF Stat Comprehensive Metabolic Panel Stat Lipase Stat Troponin & CK Cardiac Panel Stat 09/14/18 21:36 CT angio chest PE protocol Stat Discontinued Medications Sodium Chloride (Normal Saline 0.9%) 1,000 mls @ 150 mls/hr IV CONT MARTHA Last Admin: 09/14/18 22:43 Dose: Ketorolac Tromethamine (Toradol) 15 mg IV NOW ONE Stop: 09/15/18 00:17 Last Admin: 09/15/18 00:21 Dose: 15 mg Vital Signs - 8 hr 09/14/18 21:08 09/14/18 21:20 09/14/18 23:08 Temperature 97.5 F L Pulse Rate 70 65 65 Respiratory Rate 13 12 12 Blood Pressure 126/55 L Blood Pressure [Right Arm] 116/64 116/64 Pulse Oximetry 100 100 100 09/15/18 00:30 Temperature Pulse Rate 70 Respiratory Rate 18 Blood Pressure 121/58 L Blood Pressure [Right Arm] Pulse Oximetry 98 MDM - Chest Pain Differential Diagnosis Likely fracture of rib, pneumothorax, stable angina, unstable angina pectoris, atypical chest pain, st elevation myocardial infarction, costochondritis, chest pain and biliary colic Medical Records Data Attestation: I reviewed the patient's medical records. Lab Data Attestation: I reviewed the patient's lab results. Result diagrams: 09/14/18 21:30 09/14/18 21:30 Lab Results 09/14/18 09/14/18 Range/Units 21:30 21:30 WBC 8.5 (4.5-11.0) X10^3/uL RBC 3.00 L (4.5-5.9) X10^6/uL Hgb 10.1 L (13.5-17.5) g/dL Hct 29.2 L (41-53) % MCV 97.3 (80-100) fL MCH 33.6 (26-34) PG MCHC 34.6 (30-36) % RDW 15.2 H (11.6-14.8) % Plt Count 136 L (150-400) X10^3/uL Neut % (Auto) 70.4 (50-75) % Lymph % (Auto) 15.4 L (25-40) % [place] % (Auto) 7.7 (3-14) % Eos % (Auto) 5.5 H (2-4) % Baso % (Auto) 1.0 (0-2) % Neut # (Auto) 6000 H (4545-7680) /uL Sodium 141 (137-145) mmol/L Potassium 4.2 (3.4-5.1) mmol/L Chloride 103 (98-107) mmol/L Carbon Dioxide 29 (22-32) mmol/L BUN 31 H (9-20) mg/dL Creatinine 1.40 H (0.66-1.25) mg/dL Estimated GFR 51.7 L (>60) mL/min BUN/Creatinine Ratio 22.1 H (6-22) Glucose 174 H (80-110) mg/dL Calcium 9.2 (8.4-10.2) mg/dL Total Bilirubin 0.7 (0.2-1.3) mg/dL AST 40 (17-59) IU/L ALT 52 (21-72) IU/L Alkaline Phosphatase 245 H (38-126) U/L Total Creatine Kinase 33 L (55-170) U/L CK-MB (CK-2) TNP CK-MB (CK-2) Rel Index TNP Troponin I < 0.012 (0.01-0.034) ng/mL Total Protein 7.2 (6.3-8.2) g/dL Albumin 4.1 (3.5-5.0) g/dL Globulin 3.1 (1.7-4.1) g/dL Albumin/Globulin Ratio 1.3 (1.0-2.8) Lipase 313 H (23-300) U/L Imaging Data CT scan - chest: Radiologist's impression: No PE. No acute process MDM Narrative Medical decision making narrative: Myocardial infarction considered but no ischemic change on EKG, normal labs, sharp pain with palpation, inspiration, motion Pulmonary embolism considered given recent hospitalization, surgical procedure, sedentary lifestyle but thought less likely given normal CT angiogram and lack of abnormal vital signs Postsurgical complications such as pericardial effusion considered given recent pacemaker placement but thought less likely given normal CT of chest Discharge Plan Departure Patient Disposition: Home Clinical Impression: Acute chest wall pain Discharge Date/Time: 09/15/18 00:34 Interventions: ED Discharge Assessment Last Done: 09/15/18 00:30 Instructions: DI for Atypical Chest Pain Activity Restrictions/Additional Instructions: *You have been diagnosed with [ chest wall pain ] *What to do: * continue to take medications as directed *Follow up with your primary care provider in 2-3 days, call for an appointment. Let them know you were seen in the Emergency Department and that we ask that you be seen in follow up *Return to ER if you should have any new, worsening or concerning symptoms Prescriptions: No Action atorvastatin 10 mg tablet 10 mg PO BEDTIME RF: 0 albuterol sulfate [ProAir HFA] 90 mcg/actuation HFA aerosol inhaler 2 puff Inhalation Q4H PRN (Reason: Wheezing) RF: 0 diclofenac sodium 1 % gel 1 applic Topical QID PRN (Reason: Back Pain) RF: 0 furosemide 40 mg tablet 80 mg PO DAILY RF: 0 aspirin 81 mg Tablet,Delayed Release (Dr/Ec) 1 tab PO DAILY RF: 0 magnesium hydroxide [Milk of Magnesia] 400 mg/5 mL Suspension 30 ml PO PRN PRN (Reason: Constipation) RF: 0 bisacodyl 10 mg Suppository 1 supp IN PRN PRN (Reason: Constipation) RF: 0 ferrous sulfate 325 mg (65 mg iron) Tablet 1 tab PO DAILY RF: 0 calcium carbonate [Tums] 200 mg calcium (500 mg) Tablet,Chewable 2 tab PO Q4H PRN (Reason: Indigestion) RF: 0 folic acid 1 mg Tablet 1 mg PO DAILY RF: 0 simethicone 80 mg Tablet 80 mg PO Q6H PRN (Reason: excessive gas) RF: 0 dextran 70-hypromellose [Natural Balance Tears] 0.1-0.3 % Drops 1 drp ophthalmic (eye) PRN PRN (Reason: Dry Eyes) RF: 0 Scotch 1 dose PO BEDTIME PRN (Reason: unknown) RF: 0 tamsulosin 0.4 mg capsule 2 cap PO QPM RF: 0 lactulose 10 gram/15 mL solution 20 ml PO BID RF: 0 rifaximin 550 mg Tablet 550 mg PO BID RF: 0 ondansetron HCl 4 mg tablet 1 tab PO Q6H PRN (Reason: Nausea) RF: 0 potassium chloride 10 mEq tablet extended release 10 meq PO BID RF: 0 magnesium oxide 400 mg Tablet 400 mg PO DAILY RF: 0 nitroglycerin 0.4 mg tablet, sublingual 1 tab Sublingual PRN PRN (Reason: Chest Pain) RF: 0 oxycodone 5 mg tablet 5 mg PO Q8H PRN (Reason: Pain, Severe) RF: 0 insulin lispro [Humalog KwikPen Insulin] 100 unit/mL insulin pen 1 dose subcut DIRECTED RF: 0 tiotropium bromide 18 mcg Capsule, W/Inhalation Device 1 cap INHALATION DAILY RF: 0 Referrals: Elsie Kasper MD [Primary Care Provider] -
[2018-09-14 21:39] LABS: Add Manual Diff / Slide Review NO; Eosinophils Percent Auto 5.5 % (2-4); Hematocrit 29.2 % (41-53); Hemoglobin 10.1 g/dL (13.5-17.5); Lymphocytes Percent Auto 15.4 % (25-40); Mean Corpuscular HGB Conc 34.6 % (30-36); Mean Corpuscular Hemoglobin 33.6 PG (26-34); Mean Corpuscular Volume 97.3 fL (80-100); Monocytes Percent Auto 7.7 % (3-14); Neutrophils Absolute Auto 6000 /uL (3000-5900); Neutrophils Percent Auto 70.4 % (50-75); Platelet Count 136 X10^3/uL (150-400); Red Cell Distribution Width 15.2 % (11.6-14.8); White Blood Cell Count 8.5 X10^3/uL (4.5-11.0)
[2018-09-14 21:48] LABS: Alanine Aminotransferase 52 IU/L (21-72); Albumin 4.1 g/dL (3.5-5.0); Albumin Globulin Ratio 1.3 (1.0-2.8); Alkaline Phosphatase 245 U/L (38-126); Aspartate Aminotransferase 40 IU/L (17-59); BUN Creatinine Ratio 22.1 (6-22); Bilirubin Total 0.7 mg/dL (0.2-1.3); Blood Urea Nitrogen 31 mg/dL (9-20); Calcium 9.2 mg/dL (8.4-10.2); Carbon Dioxide 29 mmol/L (22-32); Chloride 103 mmol/L (98-107); Creatine Kinase 33 U/L (55-170); Estimated Glomerular Filt Rate 51.7 mL/min (>60); Globulin 3.1 g/dL (1.7-4.1); Glucose 174 mg/dL (80-110); HEMOLYSIS 24 (0-50); Lipase 313 U/L (23-300); Potassium 4.2 mmol/L (3.4-5.1); Sodium 141 mmol/L (137-145); Total Protein 7.2 g/dL (6.3-8.2)
[2018-09-14 22:04] LABS: Troponin I < 0.012 ng/mL (0.01-0.034)
[2018-09-14 23:08] VITALS: BP 116/64; PULSE 65; RESP 12; O2SAT 100
[2018-09-15] MEDS: KETOROLAC 60 MG/2 ML VIAL 15 MG IV (00:21)
[2018-09-15 00:30] VITALS: BP 121/58; PULSE 70; RESP 18; O2SAT 98
== END 2018-09-15 00:34 | disposition home or self-care (01) ==
PROVIDERS: Emergency Provider Emergency Medicine; Family Provider Internal Medicine; PCP Internal Medicine
DX: R07.89 Other chest pain (principal)
CPT/HCPCS: 36591; 71275; 80053; 82550; 83690; 84484; 85025; 93005; 93010; 93041; 96374; 99283; 99285; J1885; Q9967

== ENCOUNTER → 2018-09-21 06:58 | Outpatient (REF) | payer OTHER, MEDICAID, SELFPAY | LOC: LAB 06:58 | PROVIDERS: Family Provider Internal Medicine; PCP Internal Medicine; Visit Provider Internal Medicine | DX: N18.9 Chronic kidney disease, unspecified (principal); K74.60 Unspecified cirrhosis of liver | CPT/HCPCS: 36415; 82140 ==

== ENCOUNTER → 2018-09-30 07:23 | Outpatient (REF) | payer OTHER, MEDICAID, SELFPAY ==
[2018-09-30 08:51] LABS: Add Manual Diff / Slide Review NO; Eosinophils Percent Auto 7.5 % (2-4); Hematocrit 26.3 % (41-53); Lymphocytes Percent Auto 18.1 % (25-40); Mean Corpuscular HGB Conc 34.3 % (30-36); Mean Corpuscular Hemoglobin 34.1 PG (26-34); Mean Corpuscular Volume 99.4 fL (80-100); Monocytes Percent Auto 7.3 % (3-14); Neutrophils Absolute Auto 4900 /uL (3000-5900); Neutrophils Percent Auto 66.1 % (50-75); Platelet Count 161 X10^3/uL (150-400); Red Blood Cell Count 2.65 X10^6/uL (4.5-5.9); Red Cell Distribution Width 15.3 % (11.6-14.8); White Blood Cell Count 7.5 X10^3/uL (4.5-11.0)
[2018-09-30 09:16] LABS: Alanine Aminotransferase 32 IU/L (21-72); Albumin 3.5 g/dL (3.5-5.0); Albumin Globulin Ratio 1.1 (1.0-2.8); Alkaline Phosphatase 201 U/L (38-126); Aspartate Aminotransferase 27 IU/L (17-59); BUN Creatinine Ratio 25.3 (6-22); Bilirubin Total 0.5 mg/dL (0.2-1.3); Blood Urea Nitrogen 48 mg/dL (9-20); Calcium 8.8 mg/dL (8.4-10.2); Carbon Dioxide 25 mmol/L (22-32); Chloride 108 mmol/L (98-107); Estimated Glomerular Filt Rate 36.3 mL/min (>60); Globulin 3.1 g/dL (1.7-4.1); Glucose 134 mg/dL (80-110); HEMOLYSIS < 15 (0-50); Potassium 4.8 mmol/L (3.4-5.1); Sodium 144 mmol/L (137-145); Total Protein 6.6 g/dL (6.3-8.2)
== END ==
LOC: LAB 07:23
PROVIDERS: Family Provider Internal Medicine; PCP Internal Medicine; Visit Provider Nurse Practitioner Family
DX: D64.9 Anemia, unspecified (principal)
CPT/HCPCS: 36415; 80053; 82140; 85025

== ENCOUNTER → 2018-10-07 07:17 | Outpatient (REF) | payer OTHER, MEDICAID, SELFPAY ==
[2018-10-07 08:30] LABS: HEMOLYSIS < 15 (0-50); Iron 72 ug/dL (49-181)
[2018-10-07 08:41] LABS: Percent Iron Saturation 24 % (20-50); Total Iron Binding Capacity 302 ug/dL (261-462); Transferrin 222 mg/dL (206-381)
[2018-10-07 09:07] LABS: Ferritin 72.9 ng/mL (17.9-464)
[2018-10-07 09:21] LABS: Vitamin B12 436 pg/mL (239-931)
== END ==
LOC: LAB 07:17
PROVIDERS: Family Provider Internal Medicine; PCP Internal Medicine; Visit Provider Internal Medicine
DX: D64.9 Anemia, unspecified (principal)
CPT/HCPCS: 36415; 82607; 82728; 83540; 83550

== ENCOUNTER → 2018-11-04 07:16 | Outpatient (REF) | payer OTHER, MEDICAID, SELFPAY ==
[2018-11-04 08:40] LABS: Add Manual Diff / Slide Review NO; Basophils Percent Auto 1.1 % (0-2); Hematocrit 28.8 % (41-53); Hemoglobin 10.3 g/dL (13.5-17.5); Lymphocytes Percent Auto 21.5 % (25-40); Mean Corpuscular HGB Conc 35.6 % (30-36); Mean Corpuscular Hemoglobin 33.3 PG (26-34); Mean Corpuscular Volume 93.4 fL (80-100); Monocytes Percent Auto 7.1 % (3-14); Neutrophils Absolute Auto 4500 /uL (3000-5900); Neutrophils Percent Auto 61.3 % (50-75); Platelet Count 166 X10^3/uL (150-400); Red Blood Cell Count 3.08 X10^6/uL (4.5-5.9); Red Cell Distribution Width 14.4 % (11.6-14.8); White Blood Cell Count 7.4 X10^3/uL (4.5-11.0)
[2018-11-04 08:44] LABS: INR 1.1 (0.9-1.3); Prothrombin Time 12.6 SECONDS (10.1-12.7)
[2018-11-04 08:54] LABS: BUN Creatinine Ratio 20.7 (6-22); Blood Urea Nitrogen 29 mg/dL (9-20); Carbon Dioxide 24 mmol/L (22-32); Chloride 105 mmol/L (98-107); Estimated Glomerular Filt Rate 51.7 mL/min (>60); Glucose 145 mg/dL (80-110); HEMOLYSIS < 15 (0-50); Potassium 4.1 mmol/L (3.4-5.1); Sodium 141 mmol/L (137-145)
== END ==
LOC: LAB 07:16
PROVIDERS: Family Provider Internal Medicine; PCP Internal Medicine; Visit Provider Nurse Practitioner Family
DX: K72.90 Hepatic failure, unspecified without coma (principal)
CPT/HCPCS: 36415; 80048; 85025; 85610

== ENCOUNTER → 2018-11-09 07:06 | Outpatient (REF) | payer OTHER, MEDICAID, SELFPAY | LOC: LAB 07:06 | PROVIDERS: Family Provider Internal Medicine; PCP Internal Medicine; Visit Provider Nurse Practitioner Family | DX: K72.90 Hepatic failure, unspecified without coma (principal) | CPT/HCPCS: 36415; 82140 ==